=== PATIENT | male | born 1940 | race Caucasian/White ===

== ENCOUNTER → 2016-12-18 | Outpatient (CLI) | payer MEDICARE | END | disposition home or self-care (01) | LOC: CVU 13:23 | PROVIDERS: ATTEND Internal Medicine Cardiovascular Disease | DX: I65.23 Occlusion and stenosis of bilateral carotid arteries (principal); I10 Essential (primary) hypertension; E78.5 Hyperlipidemia, unspecified; R73.03 Prediabetes; Z86.79 Personal history of other diseases of the circulatory system; Z95.1 Presence of aortocoronary bypass graft | CPT/HCPCS: 93880 ==

== ENCOUNTER → 2019-01-09 | Outpatient (CLI) | payer MEDICARE ==
[~2019-01-09] MED LIST: ASPI-496 PO; LISI5TAB7 PO; METO50TA82 PO; MULT-717 PO; SIMV40TA3 PO; potassium PO
== END | disposition home or self-care (01) ==
LOC: STAR 10:59
PROVIDERS: ATTEND Orthopaedic Surgery
DX: Z01.818 Encounter for other preprocedural examination (principal); G56.03 Carpal tunnel syndrome, bilateral upper limbs
CPT/HCPCS: 93005

== ENCOUNTER 2019-01-16 11:32 | Day surgery (SDC) | payer MEDICARE ==
[~2019-01-16] VITALS: Ht 175.3 cm; Wt 89.7 kg
[~2019-01-16 11:32] MED LIST changes: +BUPIVACAINE/PF 0.5% ONE; +LIDOCAINE 1%, 20ML ONE
[2019-01-16] MEDS ORDERED: LACTATED RINGERS 1,000 ML IV SCH (11:59)
[2019-01-16] MEDS ORDERED: FENTANYL PF 100 MCG/2ML ONE (12:36)
[2019-01-16] MEDS ORDERED: MIDAZOLAM 1 MG/ML, 2ML ONE (12:37)
[2019-01-16] MEDS ORDERED: PROPOFOL 10 MG/ML, 20ML ONE (14:33)
[2019-01-16] MEDS ORDERED: KETOROLAC 30 MG/1 ML IV PRN (15:00)
[2019-01-16] MEDS ORDERED: FENTANYL PF 100 MCG/2ML IV PRN (15:00)
[2019-01-16] MEDS ORDERED: ONDANSETRON 2MG/ML, 2ML IV PRN (15:00)
[2019-01-16] MEDS ORDERED: OXYcodone 5 MG/5 ML ORAL.SOL UDC PO PRN (15:00)
[2019-01-16] MEDS ORDERED: ACETAMINOPHEN 325 MG TABLET PO PRN (15:00)
== END 2019-01-16 16:15 | disposition home or self-care (01) ==
LOC: OUT 11:32
PROVIDERS: ATTEND Orthopaedic Surgery
DX: G56.02 Carpal tunnel syndrome, left upper limb (principal); I25.10 Atherosclerotic heart disease of native coronary artery without angina pectoris; J44.9 Chronic obstructive pulmonary disease, unspecified; I11.0 Hypertensive heart disease with heart failure; I50.9 Heart failure, unspecified; E78.5 Hyperlipidemia, unspecified; Z87.891 Personal history of nicotine dependence; Z72.89 Other problems related to lifestyle; Z95.1 Presence of aortocoronary bypass graft
CPT/HCPCS: 64721; J2250; J2704; J3010; J3490; J7120

== ENCOUNTER 2021-05-22 10:54 | Emergency (ER) | payer MEDICARE ==
[~2021-05-22] VITALS: Ht 175.3 cm; Wt 89.9 kg
[~2021-05-22 10:54] MED LIST changes: -BUPIVACAINE/PF 0.5% ONE; -LIDOCAINE 1%, 20ML ONE; +SIMV40TA20 PO; -SIMV40TA3 PO
[2021-05-22 11:27] LABS: BASOPHILS % (AUTO) 1 % (0-1); EOSINOPHILS % (AUTO) 1 % (1-7); LYMPHOCYTES % (AUTO) 19 % (22-44); MEAN CORPUSCULAR HEMOGLOBIN 30.8 pg (27.5-34.5); MEAN CORPUSCULAR HGB CONC 33.7 g/dL (33.2-36.2); MEAN PLATELET VOLUME 7.5 fL (7.4-10.4); MONOCYTES % (AUTO) 16 % (2-9); NEUTROPHILS % (AUTO) 64 % (42-75); PLATELET COUNT 192 x10^3/uL (130-400); RED BLOOD COUNT 4.67 x10^6/uL (4.38-5.82); RED CELL DISTRIBUTION WIDTH 13.4 % (9.4-14.8)
[2021-05-22 11:39] LABS: ALBUMIN 3.7 g/dL (3.4-5.0); ANION GAP 4 mmol/L (5-15); CHLORIDE 109 mmol/L (98-107); CREATININE 1.01 mg/dL (0.7-1.3)
[2021-05-22 11:52] LABS: HCT (SEDRATE) 42.7 % (39.2-51.8)
[2021-05-22 13:56] VITALS: BP 141/74
--- NOTE | 2021-05-22 14:05 | NUR ---
Patient given discharge instructions and prescription and they have confirmed that they understand the instructions. Patient ambulatory with steady gait. NAD, all questions answered appropriately, denies additional needs at this time. No personal belongings left in room after discharge.
== END 2021-05-22 14:06 | disposition home or self-care (01) ==
LOC: ED 13:55
DX: M70.21 Olecranon bursitis, right elbow (principal); Y93.89 Activity, other specified
CPT/HCPCS: 36415; 80048; 82040; 84550; 85025; 85651; 86140; 99283

== ENCOUNTER 2021-06-03 08:35 | Outpatient (CLI) | payer MEDICARE | END 2021-06-03 23:59 | disposition home or self-care (01) | LOC: CVU 08:35 | PROVIDERS: ATTEND Internal Medicine Cardiovascular Disease | DX: I35.8 Other nonrheumatic aortic valve disorders (principal); I65.23 Occlusion and stenosis of bilateral carotid arteries; I25.10 Atherosclerotic heart disease of native coronary artery without angina pectoris; I65.8 Occlusion and stenosis of other precerebral arteries | CPT/HCPCS: 93306; 93880 ==